=== PATIENT | female | born 1975 | race Caucasian/White ===

== ENCOUNTER 2018-01-01 23:24 | Emergency (ER) | payer BC ==
[~2018-01-01] VITALS: Ht 172.7 cm; Wt 88.0 kg
[2018-01-01 23:30] VITALS: Ht 172.7 cm; Wt 88.0 kg
[2018-01-02 00:23] LABS: microscopic required? YES; urine erythrocyte 3+ (NEGATIVE)
[2018-01-02 01:30] LABS: BASOPHIL % 0.4 % (0-2); PLATELET COUNT 316 x10^3mcL (130-400); RED CELL DISTRIBUTION WIDTH 12.4 % (11.5-14.5)
[2018-01-02 01:42] VITALS: BP 124/78
== END 2018-01-02 01:42 | disposition home or self-care (01) ==
LOC: ED 23:24
PROVIDERS: Emergency Medicine
DX: O20.9 Hemorrhage in early pregnancy, unspecified (principal); Z3A.01 Less than 8 weeks gestation of pregnancy
CPT/HCPCS: 36415